=== PATIENT | male | born 1965 | race American Indian/Alaskan Native ===

== ENCOUNTER 2019-06-15 20:44 | Emergency (ER) | payer SELFPAY ==
[2019-06-15 21:36] VITALS: BP 117/86
[2019-06-15] MEDS ORDERED: IPRATROPIUM/ALBUTEROL SULFATE 3 ML AMPUL.NEB IH ONE (21:39)
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
--- NOTE | 2019-06-15 22:40 | Emergency Department Report ---
- General Chief Complaint: Chest Pain Stated Complaint: CX PAIN SOB Time Seen by Provider: 06/15/19 21:34 Source: patient Mode of arrival: Ambulatory Limitations: No Limitations - History of Present Illness Initial Comments: 53-year-old male presents to ED with cough, shortness of breath, wheezing 4 days. Patient reports chills. States cough is nonproductive. She reports head ache. He also reports sick contacts at work. Patient states when he begins to talk, it triggers coughing. Patient reports anterior chest pain with cough. MD Complaint: cough -: days(s) (4) Severity: moderate Quality: aching Consistency: constant Improves With: nothing Worsens With: other (cough) Context: sick contacts Associated Symptoms: chills, headache, sore throat, cough, chest pain (with cough), shortness of breath. denies: nausea, vomiting - Related Data Previous Rx's Medication Instructions Recorded Last Taken Type Albuterol Sulfate [Proventil Hfa] 2 puff IH Q4HR PRN #1 hfa.aer.ad 06/15/19 Unknown Rx Benzonatate [Tessalon Perles] 100 mg PO Q8HR PRN #20 capsule 06/15/19 Unknown Rx Naproxen [Naprosyn] 500 mg PO BID #20 tablet 06/15/19 Unknown Rx predniSONE [Deltasone] 50 mg PO QDAY #5 tab 06/15/19 Unknown Rx Allergies Allergy/AdvReac Type Severity Reaction Status Date / Time acetaminophen [From Percocet] Allergy Unknown Verified 06/15/19 20:51 oxycodone [From Percocet] Allergy Unknown Verified 06/15/19 20:51 ED Review of Systems ROS: Stated complaint: CX PAIN SOB Other details as noted in HPI Comment: All other systems reviewed and negative Constitutional: chills Respiratory: cough, shortness of breath, wheezing Cardiovascular: chest pain (with cough) Neurological: headache ED Past Medical Hx - Past Medical History Previous Medical History?: No - Surgical History Past Surgical History?: No - Social History Smoking Status: Never Smoker Substance Use Type: None - Medications Home Medications: Home Medications Medication Instructions Recorded Confirmed Last Taken Type Albuterol Sulfate [Proventil Hfa] 2 puff IH Q4HR PRN #1 hfa.aer.ad 06/15/19 Unknown Rx Benzonatate [Tessalon Perles] 100 mg PO Q8HR PRN #20 capsule 06/15/19 Unknown Rx Naproxen [Naprosyn] 500 mg PO BID #20 tablet 06/15/19 Unknown Rx predniSONE [Deltasone] 50 mg PO QDAY #5 tab 06/15/19 Unknown Rx ED Physical Exam - General Limitations: No Limitations General appearance: alert, in no apparent distress - Head Head exam: Present: atraumatic, normocephalic - Eye Eye exam: Present: normal appearance - ENT ENT exam: Present: normal orophraynx, mucous membranes moist - Neck Neck exam: Present: normal inspection - Respiratory Respiratory exam: Present: normal lung sounds bilaterally. Absent: respiratory distress, wheezes, rales - Cardiovascular Cardiovascular Exam: Present: regular rate, normal rhythm - GI/Abdominal GI/Abdominal exam: Present: soft. Absent: distended, tenderness - Extremities Exam Extremities exam: Present: normal inspection - Neurological Exam Neurological exam: Present: alert, oriented X3, CN II-XII intact. Absent: motor sensory deficit - Psychiatric Psychiatric exam: Present: normal affect, normal mood - Skin Skin exam: Present: warm, dry, intact, normal color. Absent: rash ED Course Vital Signs 06/15/19 21:35 Temperature 98.0 F Pulse Rate 85 Respiratory 20 Rate Blood Pressure 117/86 O2 Sat by Pulse 96 Oximetry ED Medical Decision Making - Radiology Data Radiology results: report reviewed, image reviewed - Differential Diagnosis bronchitis, pneumonia, flu Critical care attestation.: If time is entered above; I have spent that time in minutes in the direct care of this critically ill patient, excluding procedure time. ED Disposition Clinical Impression: Acute bronchitis Disposition: TO HOME OR SELFCARE Is pt being admited?: No Condition: Stable Instructions: Acute Bronchitis (ED) Referrals: PRIMARY CARE [Referring] - 3-5 Days [facility] [Provider Group] - 3-5 Days Time of Disposition: 23:28
--- NOTE | 2019-06-15 22:52 | XRay Report ---
CHEST 2 VIEWS INDICATION / CLINICAL INFORMATION: Chest pain with cough. COMPARISON: None available. FINDINGS: SUPPORT DEVICES: None. HEART / MEDIASTINUM: No significant abnormality. LUNGS / PLEURA: No significant pulmonary or pleural abnormality. No pneumothorax. ADDITIONAL FINDINGS: No significant additional findings. IMPRESSION: 1. No acute findings. Signer Name: Rl Adams MD Signed: 06/15/2019 10:48 PM Workstation Name: [id number]
[2019-06-15] MEDS ORDERED: methylPREDNISolone Sod Succinate 125 MG/2 ML INJ IM ONE (23:32)
[2019-06-15] MEDS ORDERED: KETOROLAC 30 MG/1 ML INJ IM ONE (23:32)
== END 2019-06-16 00:33 | disposition home or self-care (01) ==
LOC: ED 20:44
DX: J20.9 Acute bronchitis, unspecified (principal); Z88.6 Allergy status to analgesic agent
CPT/HCPCS: 71046; 96372; 99283; J1885; J2930

== ENCOUNTER 2019-10-19 21:57 | Emergency (ER) | payer OTHER ==
[2019-10-19 22:07] VITALS: BP 132/82
[2019-10-19] MEDS ORDERED: HYDROcodone/ACETAMINOPHEN 5-325 MG TAB PO ONE (22:58)
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
== END 2019-10-20 01:46 | disposition home or self-care (01) ==
LOC: ED 21:57
DX: S16.1XXA Strain of muscle, fascia and tendon at neck level, initial encounter (principal); R07.89 Other chest pain; Z79.899 Other long term (current) drug therapy; Z88.8 Allergy status to other drugs, medicaments and biological substances; V49.49XA Driver injured in collision with other motor vehicles in traffic accident, initial encounter; Y93.89 Activity, other specified; Y92.410 Unspecified street and highway as the place of occurrence of the external cause; Y99.8 Other external cause status
CPT/HCPCS: 70450; 71046; 72125